=== PATIENT | male | born 1945 | race Asian ===

== ENCOUNTER 2016-12-11 07:14 | Emergency (ER) | payer MEDICARE, OTHER ==
[~2016-12-11] VITALS: Ht 172.7 cm; Wt 72.6 kg
[~2016-12-11 07:14] MED LIST: CELE100C82 PO; DOXA4TAB40 PO; ESOM40CA39 PO; LEVOTAB51 PO; METO-169 PO; ROSU10TA16 PO
[2016-12-11 07:44] VITALS: BP 154/94
== END 2016-12-11 08:16 | disposition home or self-care (01) ==
LOC: ER 07:14 → EDBD 07:14 → ER 08:16
DX: F41.9 Anxiety disorder, unspecified (principal); I10 Essential (primary) hypertension; E78.5 Hyperlipidemia, unspecified